=== PATIENT | male | born 1970 | race Caucasian/White ===

== ENCOUNTER 2018-11-15 09:24 | Day surgery (SDC) | payer BC ==
[2018-11-15] MEDS ORDERED: MIDAZOLAM HCL 2MG/2ML VIAL IV ONE (09:25)
[2018-11-15] MEDS ORDERED: LIDOCAINE 2% MDV (20MG/ML) 20ML VIAL IV ONE (09:25)
[2018-11-15] MEDS ORDERED: PROPOFOL 10 MG/ML VIAL IV ONE (09:25)
--- NOTE | 2018-11-16 09:30 | Operative Note ---
DATE OF SURGERY: 11/15/2018 OPERATION: COLONOSCOPY to the cecum with cold snare polypectomy x3 and electrocautery snare polypectomy x1 and Endoclip placement x1. INDICATION: Colorectal cancer screening. ANESTHESIA: Intravenous sedation was administered by the department of anesthesiology and included Diprivan titrated to effect. PROCEDURE: Following informed consent from this alert individual including a discussion of the risks and benefits of the procedure and an opportunity for the patient to ask questions, the patient was in the left lateral decubitus position. A digital rectal examination was performed. No abnormalities were noted. Following this, the Olympus [id number] video colonoscope was inserted into the rectum without resistance. The rectal mucosa had a normal appearance with normal folds and distensibility. The colonoscope was advanced up through the bowel to the level of the cecum without much difficulty. Throughout the bowel the mucosa appeared normal, the folds were normal, and the bowel was fairly well distensible. The polyps were traversed in the ascending colon initially. The cecum was well defined by noting the appendiceal orifice and ileocecal valve. The colon preparation was good. Retroflexion in the cecum was endoscopically unremarkable. The colonoscope was then withdrawn. In the ascending colon, there were 3 polyps noted measuring between 5-7 mm in size. The larger polyp was pedunculated and removed with electrocautery snare polypectomy with a white eschar noted. No bleeding was noted. The 2 smaller polyps measuring 5-6 mm in size were removed with cold snare polypectomy. The colonoscope was then farther withdrawn. No additional changes were noted until the rectum was reached. Within the proximal rectum, there was a 4th polyp noted measuring 6 mm in size which was removed with cold snare polypectomy and suctioned through the colonoscope into a collection trap. Retroflexion was endoscopically unremarkable. The endoscope was straightened and removed. The patient tolerated the procedure well and was returned to the recovery area in stable condition. IMPRESSION: Four polyps noted as described above with 3 in the ascending colon and 1 in the rectum. All were removed with snare polypectomy with 1 in the ascending colon with electrocautery snare and the remaining 3 with cold snare. An Endoclip was placed at the rectal polypectomy site to control bleeding. Hemostasis was noted. No other changes were appreciated. RECOMMENDATIONS: Further recommendations will be forthcoming pending results of pathology obtained today. Followup will be with Ryan Pop DO, as well. As always, thank you for allowing me to participate in the care of your patient. CC: DO STEFANI Hall
== END 2018-11-15 11:45 | disposition home or self-care (01) ==
LOC: HOP 09:24
PROVIDERS: ATTEND Internal Medicine Gastroenterology
DX: Z12.11 Encounter for screening for malignant neoplasm of colon (principal); D12.2 Benign neoplasm of ascending colon; D12.8 Benign neoplasm of rectum